=== PATIENT | female | born 1980 | race Caucasian/White ===

== ENCOUNTER 2021-12-01 09:27 | Emergency (ER) | payer BC ==
[~2021-12-01] VITALS: Ht 157.5 cm; Wt 74.9 kg
[2021-12-01] MEDS ORDERED: KETOROLAC TROMETHAMINE 30 MG/ML VIAL IV STA (10:10)
[2021-12-01] MEDS ORDERED: KETOROLAC TROMETHAMINE 30 MG/ML VIAL ONE (10:14)
[2021-12-01] MEDS ORDERED: SODIUM CHLORIDE 0.9% 1000ML 1,000 ML IV SCH (10:15)
[2021-12-01] MEDS ORDERED: SODIUM CHLORIDE 0.9% 500ML 500 ML ONE (10:15)
== END 2021-12-01 11:59 | disposition home or self-care (01) ==
LOC: FSED 09:49
DX: R10.30 Lower abdominal pain, unspecified (principal); N20.0 Calculus of kidney; R31.9 Hematuria, unspecified
CPT/HCPCS: 74176; 80048; 80076; 81003; 81025; 96374; 99284; J1885; J7040